=== PATIENT | male | born 1955 | race Caucasian/White ===

== ENCOUNTER 2018-04-01 06:09 | Inpatient (IN) | payer OTHER ==
[2018-03-21 09:02] LABS: ABSOLUTE EOSINOPHILS 0.1 thou/uL (0.0-0.7); ABSOLUTE LYMPHOCYTES 1.6 thou/uL (0.8-5.3); ABSOLUTE MONOCYTES 0.7 thou/uL (0.0-1.2); ABSOLUTE NEUTROPHILS 6.2 thou/uL (1.6-8.1); BASOPHILS 0.5 %; EOSINOPHILS 1.6 %; HEMATOCRIT 45.4 % (42.0-52.0); HEMOGLOBIN 15.7 gm/dL (14.0-18.0); MCH 29.9 pg (26.0-34.0); MCHC 34.6 g/dL (28.0-37.0); MCV 86.5 fL (80.0-100.0); MONOCYTES 7.5 %; MPV 8.9 fl. (7.2-11.1); NUCLEATED RBCS 0 /100WBC; PLATELET COUNT* 243 thou/uL (150-400); POLYS 72.4 %; RBC 5.25 mil/uL (4.50-6.00); RDW-CV 13.9 % (10.5-14.5); WBC 8.6 thou/uL (4.0-11.0)
[2018-03-21 09:08] LABS: APTT 29.1 Seconds (25.0-31.3); PROTIME 10.1 Seconds (9.20-11.50)
[2018-03-21 09:33] LABS: ALBUMIN 3.8 g/dL (3.4-5.0); CREATININE 1.3 mg/dL (0.6-1.3); POTASSIUM 4.1 mmol/L (3.5-5.1); TOTAL BILIRUBIN 0.6 mg/dL (<0.1-1.0); TOTAL PROTEIN 7.3 g/dL (6.4-8.2)
--- NOTE | 2018-03-21 09:57 | EKG ---
[place] [address] ELECTROCARDIOGRAM REPORT Name: VINOD SANFORD Room: PRE IN [facility]#: [id number] Admission: Attend Phys: Brian Mahajan Discharge: Date of : 59 Report #: [id number] THIS REPORT FOR: //name// [facility] Test Date: 2018-03-21 Test Time: 08:59:41 Pat Name: VINOD SANFORD Department: Room: Gender: M [employer]: : 1955 Requested By: Jaime Ramsey Order Number: [id number] Elysia MD: Jaime Escalera Measurements Intervals [place] Rate: 61 P: 73 HI: 140 QRS: 61 QRSD: 95 T: 26 QT: 443 QTc: 447 Interpretive Statements Sinus rhythm Consider left atrial enlargement RSR' in V1 or V2, right VCD or RVH No previous ECG available for comparison Electronically Signed On 03-21-2018 9:57:41 [employer] SPECIAL[employer] by Jaime Escalera [email or web address] <ELECTRONICALLY SIGNED> By: Jaime Escalera MD, [facility] 03/21/18 [id number] [phone] Jaime Escalera MD, FACC /EPI
[2018-03-21 10:45] LABS: ESR (SEDRATE) 8 mm/hr (0-20)
[~2018-04-01] VITALS: Ht 170.2 cm; Wt 78.0 kg
--- NOTE | ~2018-04-01 | OP ---
[address] [address] OPERATIVE REPORT Name: CLARIBELVINOD ARNOLD Room: [address]#: [id number] Admission: 04/01/18 Attend Phys: Brian Maahjan Discharge: 04/02/18 Date of : 59 Report #: [id number] THIS REPORT FOR: //name// CC: Jaime Nava DATE OF SERVICE: 04/01/2018 PREOPERATIVE DIAGNOSIS: Advanced degenerative joint disease, right hip. POSTOPERATIVE DIAGNOSIS: Advanced degenerative joint disease, right hip. PROCEDURE: Right total hip arthroplasty. SURGEON: Jaime Ramsey MD WELL DRILLER HELPER: Jj Pacheco DO. ESTIMATED BLOOD LOSS: 300 mL. ANESTHESIA: General. ANTIBIOTICS: Ancef 2 grams IV preoperatively. COMPLICATIONS: None. DRAINS: None. SPECIMEN REMOVED: None. ORTHOPEDIC IMPLANTS: Biomet total hip arthroplasty system: 1. Size 11 standard offset Taperloc femoral stem. 2. A 56 mm acetabular shell with limited hole with 25 and 20 mm screws. 3. A +3 neck length with ceramic head 40 mm. 4. A 40 mm high wall polyethylene liner. CONDITION: The patient stable to PACU. INDICATIONS FOR PROCEDURE: The patient is a pleasant 62-year-old male who was seen in my clinic regarding right hip pain that he has had for quite some time. He has unfortunately failed conservative treatment including anti-inflammatory medications and steroid injections. X-rays were consistent with end-stage degenerative joint disease. This was consistent with his exam. Due to his failed conservative treatment and the pain interfering with his quality of life, I discussed potential benefit of right total hip arthroplasty. I discussed [address] [address] OPERATIVE REPORT Name: CLARIBELVINODCAIN BARRETT Room: [address] IN [facility].#: [id number] Admission: 04/01/18 Attend Phys: Brian Mahajan Discharge: 04/02/18 Date of : 59 Report #: [id number] procedure, risks, benefits, complications and indications in detail with him. Risks discussed include but not limited to infection, neurovascular injury, hardware failure, fracture, dislocation, leg length discrepancy, need for further surgery, no improvement in symptoms, DVT, PE and anesthesia complications. He did express understanding and wished to proceed with surgery. DESCRIPTION OF PROCEDURE: After consent was obtained, the patient was taken to the operative suite and placed in supine position on operating room table. He was given the benefit of general anesthesia. All bony prominences were well padded. A well-padded perineal post was placed. The right hip was then sterilely prepped and draped in usual fashion. Preoperative timeout was obtained to confirm the correct patient, procedure and operative site. Surgery began with approximately 10 cm incision for a standard anterior approach. Sharp dissection was taken down to the level of the tensor. A new knife was used and an incision was made in the tensor fascia. The underlying muscle belly was reflected and the interval between the sartorius and tensor fascia was encountered. Deeper dissection exposed the circumflex vessels. These were pretreated with Aquamantys followed by electrocautery. A #7 retractor was placed superiorly followed by a #6 retractor inferiorly. The indirect head of the rectus was reflected off the anterior hip capsule utilizing a Tillman elevator. A #9 retractor was placed. The anterior capsule was pretreated with Aquamantys and an anterior capsulectomy was performed. He had a normal appearing joint effusion. He did have severely eburnated bone with osteophytes throughout the joint. At this time, the femoral neck cut was made approximately 1 fingerbreadth above the lesser trochanter. Femoral head and neck were removed and again inspected. These were severely eburnated. The acetabulum was then prepared. Sequential reaming was performed up to a size 55. This gave us good fit and fill of the acetabulum with good bleeding bone for a 56 mm shell. Final reaming and cup implantation was done under C-arm visualization. The final 56 mm shell was impacted in place in appropriate inclination and version. This did have good purchase. Two acetabular screws were placed 25 and 20 mm. Once confirmed to be in good position, a 40 mm high wall liner was placed and locked in place. Attention was then turned to the proximal femur. The hip was gradually externally rotated, extended and adducted while releases were performed exposing the proximal femur. The femoral hook was used to bring the free proximal femur up into the wound. This gave us good exposure. A box osteotome was utilized followed by rat tail rasp and sequential broaching. This progressed up to a size 11. This gave us good fit and fill of the proximal femur. Trial reduction was performed with a -3 neck length. He was a little bit short at this time and had some impingement with external rotation. We trial reduced with a +3 neck length and this gave us near equal leg length with good stability throughout range of motion. The hip was then dislocated, trial components removed. The final size 11 stem was impacted into place to appropriate depth. Trial reduction was again performed with a +3 neck length was chosen. The final +3 neck length with 40 mm ceramic head was [facility] [address] [place] [address] OPERATIVE REPORT Name: VINOD SANFORD Room: [address]#: [id number] Admission: 04/01/18 Attend Phys: Brian Mahajan Discharge: 04/02/18 Date of : 59 Report #: [id number] impacted on to the clean trunnion. The hip was then reduced with good reduction maneuver, was stable throughout range of motion. Final x-rays were taken, noting good position of all hardware and equal leg lengths with no acute obvious intraoperative complications. The wound was then thoroughly irrigated with sterile saline. Ortho cocktail was injected. The tensor fascia was reapproximated with #1 Vicryl in a [id number] fashion. Subcutaneous tissues closed with 2-0 Vicryl in interrupted fashion followed by a running Monocryl stitch on the skin. This was covered with Dermabond, was allowed to dry, Mepilex silver dressing and pressure dressing. He did tolerate the procedure well without complications. He was taken to recovery room in stable condition. All needle and sponge counts were correct x 2 at the end of the procedure. By: [id number] /nt
[~2018-04-01 06:09] MED LIST: ALEVE220 MG PO; AMLODIPINE BESY10 MG PO; ARMOUR THYROID60 M1 PO; ASPIR 8181 MG PO; LOPRESSOR50 PO
[2018-04-01 06:48] VITALS: BP 130/87
--- NOTE | 2018-04-01 18:56 | NUR ---
PATIENT ARRIVED TO UNIT AT 1110. ALERT AND ORIENTED X4. IV IS PATENT AND INFUSING. PAIN BEING MANAGED WITH MEDICATION RECIEVED IN PACU. DENIES NAUSEA. BRYAN HOSE IN PLACE BILATERALLY. SCD'D IN PLACE. CAP-NO IN PLACE. VSS ON ROOM 2L O2. CALL LIGHT IS WITHIN REACH. PATIENT HAS BEEN ORIENTED TO ROOM. CALL LIGHT IS WITHIN REACH.
[2018-04-01 18:58] VITALS: BP 117/69
--- NOTE | 2018-04-01 19:21 | NUR ---
ALERT AND ORIENTED X4. UP WITH ASSIST X1 WITH WALKER AND GAIT BELT. IV IS PATENT AND INFUSING. PAIN BEING MANAGED WITH PO PAIN MEDICATION. DENIES NAUSEA. TOLERATING DIET. BRYAN HOSE IN PLACE. CAP-NO IN PLACE. DRESSING IS C/D/I. VSS ON ROOM AIR. HOURLY ROUNDS HAVE BEEN MAINTAINED THROUGHOUT SHIFT. CALL LIGHT IS WITHIN REACH. NURSING WILL CONTINUE TO MONITOR.
[2018-04-02 04:00] VITALS: BP 108/61
[2018-04-02 04:41] LABS: HEMATOCRIT 35.3 % (42.0-52.0); HEMOGLOBIN 12.2 gm/dL (14.0-18.0)
--- NOTE | 2018-04-02 05:35 | NUR ---
PATIENT HAS SLEPT OFF AND ON DURING THE NIGHT. VSS ON 2L 02 VIA NASAL CANNULA AND CAPNO IN PLACE. PAIN WELL CONTROLLED. MEDICATIONS GIVEN ORDERED AND CHARTED. DRESSING TO RIGHT HIP IS C/D/I. PATIENT URINATING ADEQUATELY USING BEDSIDE URINAL DURING THE NIGHT. IV IN LEFT HAND-SL. IV ABT GIVEN WITHOUT ANY ADVERSE SIDE EFFECTS NOTED. PATIENT HAS C/O SORE THROAT-NEW ORDER FROM FOR CHLORASEPTIC SPRAY AND CEPACOL LOZENGERS. PATIENT INSTRUCTED TO USE CALL LIGHT WHEN NEEDING ASSISTANCE. HOURLY ROUNDS MADE. WILL CONTINUE WITH PLAN OF CARE AND NURSING TO MONITOR.
[2018-04-02 08:02] VITALS: BP 105/63
[2018-04-02] MEDS ORDERED: OXYCODONE HCL 55 MG PO (10:32)
[2018-04-02] MEDS ORDERED: ELIQUIS2.5 MG PO (10:32)
[2018-04-02] MEDS ORDERED: NORCO 5-325 TA1 EACH PO (10:33)
[2018-04-02 10:35] VITALS: BP 105/63
--- NOTE | 2018-04-02 11:50 | NUR ---
MET WITH PT.AND . HE WAS A LITTLE DROWSY BUT ORIENTED. HAD QUESTIONS ABOUT HOW TO GET INTO [facility] OR [facility]. PT.DID WELL WITH THERAPY. EXPLAINED THEY WERE INPT.SKILLED FACILITIES AND HE WAS DOING TOO WELL TO GO TO SNF. DISCUSSED HOW HIS DR.JUST WANTED HIS PT.'S THAT HAVE HAD HIP REPLACEMENTS TO GO HOME WITH SELF CARE. IF MORE THERAPY NEEDED DRVinnieWOULD SET HIM UP WITH OUTPT.THERAPY AT 2 WEEK APPT. CM CALLED IN [employer] WRITTEN TO PT.'S PHARMACY. COPAY IS $73. INFORMED PT.AND . THEY SAID THEY COULD AFFORD THAT. PT.HAS HIS WALKER IN ROOM, FROM HOME. HE SAID HE DID NOT HAVE TO USE IT PRIOR TO SURGERY. PT.'S WILL BE WITH HIM AT HOME AFTER SURGERY. PT.WAS INDEPENDENT PRIOR TO SURGERY.
[2018-04-02] MEDS ORDERED: ASPIR-TRIN325 MG PO (13:40)
[2018-04-02 14:21] VITALS: BP 105/63
--- NOTE | 2018-04-02 14:28 | NUR ---
PT GIVEN DISCHARGE INFORMATION, CARE NOTES, AND PRESCRIPTIONS. PT ELIQUIS PRESCRIPTION CALLED IN BY CASE MANAGEMENT. PT HAD WLAKER AND SHOWER CHAIR AT HOME. FALL RISK PRECAUTIONS IN PLACE. PT BELONGINGS GATHERED. HOURLY ROUNDING COMPLETED. PT LEFT VIA WHEELCHAIR WITH NURSING STAFF TO HOME CARE.
== END 2018-04-02 14:29 | disposition home or self-care (01) | DRG 470 ==
LOC: M.TBA 06:09 → M.ORTHSURG 06:09 → M.PRE 07:24 → M.ORTHSURG 10:41 → M.PRE 11:09 → M.ORTHSURG 04-02 14:29
PROVIDERS: Orthopaedic Surgery; ADMIT Internal Medicine
PROC: 0SR903Z Replacement of Right Hip Joint with Ceramic Synthetic Substitute, Open Approach (ICD-10-PCS; principal; 2018-04-01)
DX: M16.11 Unilateral primary osteoarthritis, right hip (principal); D62 Acute posthemorrhagic anemia; I10 Essential (primary) hypertension; E03.9 Hypothyroidism, unspecified; Z79.82 Long term (current) use of aspirin; Z79.899 Other long term (current) drug therapy; Z88.8 Allergy status to other drugs, medicaments and biological substances